=== PATIENT | male | born 1965 | race Caucasian/White ===

== ENCOUNTER 2018-07-23 09:13 | Emergency (ER) | payer OTHER, BC ==
[~2018-07-23] VITALS: Ht 182.9 cm; Wt 102.1 kg
[~2018-07-23 09:13] MED LIST: AZULFIDINE PO; BYSTOLIC 5 MG5 MG PO; DETROL LA4 MG; ENBREL SQ; FLOMAX; FOLIC ACID1 MG; IBUPROFEN 800800 M1; LAMICTAL PO; LOVAZA1000 MG PO; NEURONTIN 300300 M1; NITROSTAT0.4 MG SL; STRATTERA100 MG PO; TRICOR145 MG; VITAMIN D1000 UNI1
[2018-07-23 09:28] LABS: BASOPHILS 0.3 % (0.0-2.0); EOSINOPHILS 0.9 % (0.0-3.0); HEMATOCRIT 48.7 % (42.0-52.0); HEMOGLOBIN 17.1 gm/dL (14.0-18.0); LYMPHOCYTES 4.3 % (24.0-44.0); MCH 31.8 pg (26.0-34.0); MCHC 35.2 g/dL (28.0-37.0); MCV 90.2 fL (80.0-100.0); MONOCYTES 4.5 % (1.0-8.0); PLATELET COUNT 153 thou/uL (150-400); RDW 13.8 % (10.5-14.5); WBC 8.8 thou/uL (4.0-11.0)
[2018-07-23 09:32] LABS: ANION GAP 14 mmol/L (7-16); BUN 18 mg/dL (7-18); CALCIUM 9.6 mg/dL (8.5-10.1); CHLORIDE 98 mmol/L (98-107); CO2 23 mmol/L (21-32); CREATININE 0.9 mg/dL (0.7-1.3); GLUCOSE 433 mg/dL (74-106); POTASSIUM 4.3 mmol/L (3.5-5.1); SODIUM 135 mmol/L (136-145)
[2018-07-23 09:41] LABS: TROPONIN-I <0.06 ng/mL (<0.06)
[2018-07-23 13:15] VITALS: BP 149/85
--- NOTE | 2018-07-24 08:16 | EKG ---
[address] [address] ELECTROCARDIOGRAM REPORT Name: LISANDRA JEREZ [id number] Admission: 07/23/18 Attend Phys: Discharge: 07/23/18 Date of : 65 Report #: [id number] THIS REPORT FOR: //name// [facility] ED Test Date: 2018-07-23 Test Time: 09:17:00 Pat Name: LISANDRA JEREZ Department: Room: Gender: M [employer]: : 1965 Requested By: Dominic Glez Order Number: [id number] MD: Bryant Lo Measurements Intervals [place] Rate: 126 P: 22 SC: 155 QRS: 265 QRSD: 83 T: 63 QT: 304 QTc: 441 Interpretive Statements Sinus tachycardia Left anterior fascicular block No previous ECG available for comparison Electronically Signed On 07-24-2018 8:16:15 [employer] ARCHITECT by Bryant Lo [email or web address] <ELECTRONICALLY SIGNED> By: Bryant Lo MD 07/24/18 0816 09 6 MD MATEUSZ Zaldivar
== END 2018-07-23 13:15 | disposition home or self-care (01) ==
LOC: ER 09:13
PROVIDERS: Emergency Medicine
DX: R00.0 Tachycardia, unspecified (principal); R07.89 Other chest pain; I10 Essential (primary) hypertension; E78.5 Hyperlipidemia, unspecified; F31.9 Bipolar disorder, unspecified; N40.0 Benign prostatic hyperplasia without lower urinary tract symptoms; Z88.8 Allergy status to other drugs, medicaments and biological substances